=== PATIENT | female | born 1980 | race Caucasian/White ===

== ENCOUNTER 2023-01-17 22:20 | Inpatient (IN) | payer MEDICAID ==
[~2023-01-17] VITALS: Ht 165.1 cm; Wt 61.2 kg
[2023-01-17 23:02] VITALS: BP 133/85
[2023-01-17] MEDS ORDERED: NACL 0.9% 1,000 ML IV SCH (23:15)
--- NOTE | 2023-01-17 23:15 | NUR ---
Patient received on bed lying and awake. Alert and oriented x4. No acute distress. Complained of right side flank pain with scale of 8/10. Respirations even and unlabored.
--- NOTE | 2023-01-17 23:19 | NUR ---
PT TAKEN TO XRAY
--- NOTE | 2023-01-17 23:30 | NUR ---
Patient received on bed lying comfortably and awake. Alert and oriented x4. No acute distress. Patient complaints of right sided flank pain with scale of 8/10. Respirations even and unlabored.
--- NOTE | 2023-01-17 23:33 | NUR ---
Dr. Álvarez examining patient.
[2023-01-17] MEDS ORDERED: NACL 0.9% 1,000 ML IV ONE (23:35)
[2023-01-17] MEDS ORDERED: ACETAMINOPHEN 325 MG TAB PO ONE (23:35)
[2023-01-17] MEDS ORDERED: ONDANSETRON 4 MG/2 ML VIAL IVP ONE (23:35)
--- NOTE | 2023-01-17 23:46 | NUR ---
PT TAKEN TO BED 6
--- NOTE | 2023-01-17 23:47 | NUR ---
PT TAKEN TO CT
--- NOTE | 2023-01-18 00:04 | NUR ---
PT RETURN FROM CT
[2023-01-18] MEDS ORDERED: cefTRIAXone 1,000 MG VIAL ONE (00:32)
[2023-01-18 01:13] LABS: BASOPHILS # (AUTO) 0.1 K/uL (0.00-0.22); BASOPHILS % (AUTO) 0.6 % (0.0-2.0); EOSINOPHILS % (AUTO) 0.2 % (0.0-4.0); HEMATOCRIT 35.6 % (36-48); LYMPHOCYTES % (AUTO) 12.2 % (20.5-51.1); MEAN CORPUSCULAR HEMOGLOBIN 29 pg (27-31); MEAN CORPUSCULAR HGB CONC 34 g/dL (33-37); MEAN CORPUSCULAR VOLUME 87.3 fL (80-94); MONOCYTES # (AUTO) 1.8 K/uL (0.8-1.0); MONOCYTES % (AUTO) 11.1 % (1.7-9.3); NEUTROPHILS # (AUTO) 12.5 K/uL (1.8-7.7); NEUTROPHILS % (AUTO) 75.9 % (42.2-75.2); PLATELET COUNT (AUTO) 382 K/uL (140-450); RED BLOOD CELL COUNT(AUTO) 4.08 MIL/uL (4.20-5.40); RED CELL DISTRIBUTION WIDTH 13.9 % (11.6-13.7); WHITE BLOOD COUNT (AUTO) 16.4 K/uL (4.8-10.8)
[2023-01-18 01:40] LABS: ANION GAP 11.5 (8-16); ASPARTATE AMINOTRANSFERASE 20 U/L (15-37); CARBON DIOXIDE 27.7 mmol/L (21-32); CHLORIDE 91 mmol/L (98-107); CREATININE 0.8 mg/dL (0.6-1.3); GFR ARICAN-AMERICAN 100 mL/min (>90); GLUCOSE 132 mg/dL (74-106); POTASSIUM 3.2 mmol/L (3.5-5.1); SODIUM SERUM 127 mmol/L (136-145); TOTAL BILIRUBIN 0.9 mg/dL (0.0-1.0); UREA NITROGEN, BLOOD 9 mg/dL (7-18)
[2023-01-18] MEDS ORDERED: MORPHINE SULFATE 4 MG/ML SYR IVP ONE (02:05)
[2023-01-18 02:06] LABS: APPEARANCE,URINE CLEAR (CLEAR); BILIRUBIN,URINE NEGATIVE (NEGATIVE); BLOOD, URINE 2+ (NEGATIVE); COLOR,URINE YELLOW (YELLOW); LEUKOCYTE ESTERASE ,URINE 3+ (NEGATIVE); NITRITE, URINE POSITIVE (NEGATIVE); UGLUCOSE NEGATIVE (NEGATIVE)
[2023-01-18 02:16] LABS: RBC,URINE 0-5 /HPF (0-5); WBC,URINE TOO MANY TO COUNT /HPF (0-5)
[2023-01-18] MEDS ORDERED: POTASSIUM CHLORIDE 20% 40 MEQ/15 ML UDC PO ONE (02:30)
[2023-01-18] MEDS ORDERED: MORPHINE SULFATE 2 MG/ML SYR IVP PRN ×2 (03:10→07:15)
[2023-01-18 07:00] LABS: BASOPHILS % (AUTO) 0.2 % (0.0-2.0); EOSINOPHILS # (AUTO) 0.1 K/uL (0-0.4); EOSINOPHILS % (AUTO) 0.5 % (0.0-4.0); HEMATOCRIT 35.9 % (36-48); HEMOGLOBIN 12.1 g/dL (12.0-16.0); LYMPHOCYTES # (AUTO) 2.5 K/uL (2.5-16.5); LYMPHOCYTES % (AUTO) 19.7 % (20.5-51.1); MEAN CORPUSCULAR HEMOGLOBIN 30 pg (27-31); MEAN CORPUSCULAR HGB CONC 34 g/dL (33-37); MEAN CORPUSCULAR VOLUME 88.3 fL (80-94); MONOCYTES # (AUTO) 1.6 K/uL (0.8-1.0); MONOCYTES % (AUTO) 12.6 % (1.7-9.3); NEUTROPHILS # (AUTO) 8.5 K/uL (1.8-7.7); PLATELET COUNT (AUTO) 368 K/uL (140-450); RED BLOOD CELL COUNT(AUTO) 4.07 MIL/uL (4.20-5.40); RED CELL DISTRIBUTION WIDTH 13.8 % (11.6-13.7); WHITE BLOOD COUNT (AUTO) 12.8 K/uL (4.8-10.8)
[2023-01-18 07:09] LABS: CARBON DIOXIDE 28.2 mmol/L (21-32); CREATININE 0.9 mg/dL (0.6-1.3); POTASSIUM 4.2 mmol/L (3.5-5.1)
[2023-01-18] MEDS ORDERED: DOCUSATE SODIUM 100 MG GELCAP PO PRN (07:15)
[2023-01-18] MEDS ORDERED: ACETAMINOPHEN 325 MG TAB PO PRN (07:15)
[2023-01-18] MEDS ORDERED: MAG SULF 2000 MG/WATER PREMIX 50 ML IV PRN (07:15)
[2023-01-18] MEDS ORDERED: POTASSIUM CHLORIDE 10 MEQ TABER PO PRN (07:15)
[2023-01-18] MEDS ORDERED: LORazepam 2 MG/ML VIAL IVP PRN (07:15)
[2023-01-18] MEDS ORDERED: ONDANSETRON 4 MG/2 ML VIAL IVP PRN (07:15)
[2023-01-18] MEDS ORDERED: ZOLPIDEM 10 MG TAB PO PRN (07:15)
--- NOTE | 2023-01-18 07:30 | NUR ---
Gave report to OTTO Champion.
--- NOTE | 2023-01-18 10:26 | NUR ---
PATIENT HAS BEEN SCREENED AND CATEGORIZED LOW NUTRITION RISK. PATIENT WILL BE SEEN WITHIN 7 DAYS OF ADMISSION. 01/18/23-01/25/[address]
--- NOTE | 2023-01-18 10:36 | NUR ---
Patient will be admitted to care of DR SCHOFIELD. Admited to TELE. Will go to room 127B. Belongings list completed. Report to DEANNA MENJIVAR.
--- NOTE | 2023-01-18 11:00 | NUR ---
admit from the emergency room rn in rm 127B [id number] with admitting diagnosis of urinary tract infection . will continue to monitor
[2023-01-18 12:00] VITALS: BP 123/58
--- NOTE | 2023-01-18 15:44 | NUR ---
patient transferred from telemetry to medical surgical unit . will continue to monitor
[2023-01-18 16:00] VITALS: BP 132/89
--- NOTE | 2023-01-18 18:23 | NUR ---
the patient decided to do against medical advice . md prakash was made aware . the patient walk with the to the lobby in a waiting private car no sign and symptom of respiratory distress . no complain of pain at this time . patient in a stable condition. bp 128/56 hr 78 rr19, temp 97.8 . patient refuse to sign and against medical advice form
== END 2023-01-18 18:15 | disposition left against medical advice (07) | DRG 720 ==
LOC: MED 22:20 → MTU 01-18 03:12 → MMU 01-18 05:50
PROVIDERS: ADMIT Family Medicine; ATTEND Family Medicine
DX: A41.9 Sepsis, unspecified organism (principal); E44.1 Mild protein-calorie malnutrition; E83.51 Hypocalcemia; E87.8 Other disorders of electrolyte and fluid balance, not elsewhere classified; E87.1 Hypo-osmolality and hyponatremia; N12 Tubulo-interstitial nephritis, not specified as acute or chronic; M06.9 Rheumatoid arthritis, unspecified; E87.6 Hypokalemia; Z20.822 Contact with and (suspected) exposure to COVID-19; D64.9 Anemia, unspecified; D72.829 Elevated white blood cell count, unspecified; Z88.6 Allergy status to analgesic agent; Z91.041 Radiographic dye allergy status; Z68.22 Body mass index [BMI] 22.0-22.9, adult
CPT/HCPCS: 36415; 71045; 80048; 80053; 81001; 83605; 84484; 85025; 87040; 87086; 96361; 96365; 96375; 99291; J0696; J2405; J7060

== ENCOUNTER 2023-12-24 02:40 | Emergency (ER) | payer SELFPAY ==
[~2023-12-24] VITALS: Ht 165.1 cm; Wt 59.0 kg
[2023-12-24 03:14] VITALS: BP 125/82; PULSE 89; RESP 18; TEMP 98.2; O2SAT 100
[2023-12-24 03:28] VITALS: BP 125/82; PULSE 89; RESP 18; TEMP 98.2; O2SAT 98
[2023-12-24 05:03] LABS: APPEARANCE,URINE CLEAR (CLEAR); BILIRUBIN,URINE NEGATIVE (NEGATIVE); BLOOD, URINE 3+ (NEGATIVE); COLOR,URINE YELLOW (YELLOW); LEUKOCYTE ESTERASE ,URINE 1+ (NEGATIVE); NITRITE, URINE POSITIVE (NEGATIVE); PROTEIN,URINE 1+ (NEGATIVE); UGLUCOSE NEGATIVE (NEGATIVE); UROBILINOGEN,URINE 0.2 EU/dL (0.2 - 1)
[2023-12-24 05:09] LABS: BACTERIA,URINE 10-30 (MOD) /HPF (None Seen); MUCUS,URINE 1+ /LPF (None Seen); SQUAMOUS EPITHELIAL CELL,UR 0-3 (FEW) /LPF (0-3 (FEW)); WBC,URINE TOO MANY TO COUNT /HPF (0-5)
[2023-12-24 05:22] LABS: AMPHETAMINE, URINE POSITIVE ng/ml (NEG <=1000); BARBITURATE, URINE NEGATIVE ng/ml (NEG <=200); BENZODIAZEPINE, URINE NEGATIVE ng/mL (NEG <=200); COCAINE, URINE NEGATIVE ng/mL (NEG <=300)
[2023-12-24 05:23] LABS: CANNABINOID, URINE NEGATIVE ng/mL (NEG <=50); OPIATE, URINE NEGATIVE ng/mL (NEG <=2000); PHENCYCLIDINE SCREEN,URINE NEGATIVE ng/mL (NEG <=25)
[2023-12-24] MEDS ORDERED: LIDOCAINE MPF 1% 5 ML ONE (05:27)
[2023-12-24] MEDS ORDERED: cefTRIAXone 1,000 MG VIAL ONE (05:27)
[2023-12-24] MEDS: KETOROLAC 30 MG/ML VIAL IM ONE (05:32)
[2023-12-24] MEDS: cefTRIAXone 1,000 MG in LIDOCAINE MPF 1% 2.1 ML IM ONE (05:34)
[2023-12-24] MEDS ORDERED: CEPH-588 PO (05:39)
[2023-12-24] MEDS ORDERED: ACET-10509 PO (05:39)
== END 2023-12-24 05:53 | disposition home or self-care (01) ==
LOC: MED 02:40
DX: N39.0 Urinary tract infection, site not specified (principal); F15.90 Other stimulant use, unspecified, uncomplicated; Z79.82 Long term (current) use of aspirin; Z88.8 Allergy status to other drugs, medicaments and biological substances; Z79.899 Other long term (current) drug therapy
CPT/HCPCS: 80305; 81001; 81025; 87086; 96372; 99284; J0696; J1885; J2001